=== PATIENT | female | born 1975 | race Caucasian/White ===

== ENCOUNTER 2020-08-22 15:14 | Emergency (ER) | payer OTHER ==
[~2020-08-22] VITALS: Ht 165.1 cm; Wt 93.4 kg
[2020-08-22] MEDS ORDERED: KETOROLAC 60 MG VIAL (30MG/ML) IM STA (17:20)
[2020-08-22] MEDS ORDERED: HYDROCODONE/ACETAMINOPHEN 5/325 MG TAB PO STA (17:20)
[2020-08-22] MEDS ORDERED: CARI350T PO (18:16)
== END 2020-08-22 18:26 | disposition home or self-care (01) ==
LOC: EDH 15:14
DX: S89.92XA Unspecified injury of left lower leg, initial encounter (principal); E66.9 Obesity, unspecified; X58.XXXA Exposure to other specified factors, initial encounter; Y93.89 Activity, other specified; Y92.89 Other specified places as the place of occurrence of the external cause; Y99.8 Other external cause status
CPT/HCPCS: 29505; 73562; 96372; 99283; J1885